=== PATIENT | female | born 1945 | race African-American/Black ===

== ENCOUNTER 2017-02-04 19:21 | Emergency (ER) | payer OTHER, MEDICARE ==
[2017-02-04 19:54] VITALS: TEMP 98; BMI 34.2
[2017-02-04] MEDS ORDERED: ASPIRIN 81 MG CHEWABLE TABLETS PO ONE (21:12)
--- NOTE | 2017-02-04 21:12 | PDOC ---
History of Present Illness - History of Present Illness Initial Comments: 02/04/17 21:26 The patient is a 71 year old female, with a significant past medical history of anemia, PE (s/p knee fracture), gastric ulcer and diverticulosis s/p colonoscopy in 2016 (on protonics), COPD, hypertension, and recurrent sinus infections, who presents to the emergency department with chest pain for 4 days with new onset of shortness of breath and right upper back pain today. She describes the chest pain as an intermittent discomfort to the diffuse anterior aspect of her chest. The patient also states she feels gassy and experiencing some acid reflux, which she reports taking a couple of tums with little to no relief. The patient also reports her right upper back pain radiates anteriorly. She denies recent travel or sick contacts. She denies cough. The patient states she has been compliant with her medications. She denies headache and dizziness. She denies fever, chills, nausea, vomit, diarrhea and constipation. She denies dysuria, frequency, urgency and hematuria. Allergies: NKDA Surgical History: Aortic aneurysm s/p repair was last evaluated 2015 at [facility] Social history: denies toxic habits PCP - Dr. Reeves <Rahda Zhu - Last Filed: 02/04/17 23:30> - General History Source: Patient <Armen Feldman - Last Filed: 02/04/17 23:36> - General Chief Complaint: Chest Pain Stated Complaint: PAIN Time Seen by Provider: 02/04/17 21:11 Past History <Radha Zhu - Last Filed: 02/04/17 23:30> - Past Medical History Anemia: Yes Asthma: No Cancer: No Cardiac Disorders: No CVA: No COPD: Yes (PE) CHF: No Dementia: No Diabetes: No GI Disorders: Yes (GASTRIC ULCER,DIVERTICULOSIS,HEMORRHOIDS) Disorders: No HTN: Yes Hypercholesterolemia: No Liver Disease: No Suicide Attempt (Hx): No Seizures: No Thyroid Disease: Yes (HYPOTHYROIDISM,THYROID NODULES) - Surgical History Abdominal Surgery: Yes (ABDOMINAL ANEURYSM REPAIR ) Appendectomy: No Cardiac Surgery: No Cholecystectomy: No Lung Surgery: No Neurologic Surgery: No Orthopedic Surgery: No - Immunization History Td Vaccination: Yes Immunization Up to Date: Yes - Psycho/Social/Smoking Cessation Hx Anxiety: No Suicidal Ideation: No Smoking Status: No Smoking History: Never smoked Have you smoked in the past 12 months: No Number of Cigarettes Smoked Daily: 0 If you are a former smoker, when did you quit?: at age 19 Information on smoking cessation initiated: No Hx Alcohol Use: No Drug/Substance Use Hx: No Substance Use Type: None Hx Substance Use Treatment: No <FranciaArmen - Last Filed: 02/04/17 23:36> - Past Medical History Allergies/Adverse Reactions: Allergies Allergy/AdvReac Type Severity Reaction Status Date / Time No Known Allergies Allergy Verified 02/04/17 19:49 Home Medications: Ambulatory Orders Aspirin [Baby Aspirin] 81 mg PO DAILY #0 tab.chew 02/12/12 Cholecalciferol (Vitamin D3) [Vitamin D3 -] 1,000 unit PO DAILY #0 tab 02/12/12 Fexofenadine HCl [Kaleigh] 80 mg PO DAILY 03/19/12 Fluticasone Propionate [Flonase Allergy Relief] 9.9 ml NS ASDIR PRN 09/17/16 Methimazole 5 mg PO HS 09/17/16 Multivitamin with Iron [Daily Sharad with Iron] 1 each PO DAILY 09/17/16 Ranitidine HCl [Zantac] 150 mg PO DAILY 09/17/16 Valsartan [Diovan] 160 mg PO DAILY 09/17/16 Review of Systems - Review of Systems Able to Perform ROS?: Yes Comments:: 02/04/17 21:26 CONSTITUTIONAL: Absent: fever, chills, diaphoresis, generalized weakness, malaise, loss of appetite HEENT: Absent: rhinorrhea, nasal congestion, throat pain, throat swelling, difficulty swallowing, mouth swelling, ear pain, eye pain, visual Changes CARDIOVASCULAR: (+) chest pain Absent: syncope, palpitations, irregular heart rate, lightheadedness, peripheral edema RESPIRATORY: (+) shortness of breath Absent: cough, dyspnea with exertion, orthopnea, wheezing, stridor, hemoptysis GASTROINTESTINAL: (+) Acid reflux and gas Absent: abdominal pain, abdominal distension, nausea, vomiting, diarrhea, constipation, melena, hematochezia GENITOURINARY: Absent: dysuria, frequency, urgency, hesitancy, hematuria, flank pain, genital pain MUSCULOSKELETAL: Absent: myalgia, arthralgia, joint swelling SKIN: Absent: rash, itching, pallor HEMATOLOGIC/IMMUNOLOGIC: Absent: easy bleeding, easy bruising, lymphadenopathy, frequent infections ENDOCRINE: Absent: unexplained weight gain, unexplained weight loss, heat intolerance, cold intolerance NEUROLOGIC: Absent: headache, focal weakness or paresthesias, dizziness, unsteady gait, seizure, mental status changes, bladder or bowel incontinence PSYCHIATRIC: Absent: anxiety, depression, suicidal or homicidal ideation, hallucinations. <Radha Zhu - Last Filed: 02/04/17 23:30> *Physical Exam - Vital Signs Last Vital Signs Temp Pulse Resp BP Pulse Ox 98.0 F 79 20 153/93 99 02/04/17 19:49 02/04/17 19:49 02/04/17 19:49 02/04/17 19:54 02/04/17 19:49 - Physical Exam Comments: 02/04/17 21:27 GENERAL: Well developed, well nourished. Awake and alert. No acute distress. HEENT: Normocephalic, atraumatic. PERRLA, EOMI. No conjunctival pallor. Sclera are non- icteric. Moist mucous membranes. Oropharynx is clear. NECK: Supple. Full ROM. No JVD. Carotid pulses 2+ and symmetric, without bruits. No thyromegaly. No lymphadenopathy. CARDIOVASCULAR: Regular rate and rhythm. No murmurs, rubs, or gallops. Distal pulses are 2+ and symmetric. PULMONARY: No evidence of respiratory distress. Lungs clear to auscultation bilaterally. No wheezing, rales or rhonchi. ABDOMINAL: Soft. Non-tender. Non-distended. No rebound or guarding. No organomegaly. Normoactive bowel sounds. MUSCULOSKELETAL (+) ttp right upper thoracic region. Normal range of motion at all joints. No bony deformities. No CVA tenderness. EXTREMITIES: No cyanosis. No clubbing. No edema. No calf tenderness. SKIN: Warm and dry. Normal capillary refill. No rashes. No jaundice. NEUROLOGICAL: Alert, awake, appropriate. Cranial nerves 2-12 intact. Normoreflexic in the upper and lower extremities. Normal speech. Toes are down-going bilaterally. Gait is normal without ataxia. PSYCHIATRIC: Cooperative. Good eye contact. Appropriate mood and affect. <Radha Zhu - Last Filed: 02/04/17 23:30> - Vital Signs Last Vital Signs Temp Pulse Resp BP Pulse Ox 98.0 F 79 20 153/93 99 02/04/17 19:49 02/04/17 19:49 02/04/17 19:49 02/04/17 19:54 02/04/17 19:49 <Armen Feldman - Last Filed: 02/04/17 23:36> Heart Score/ECG Review - ECG Intrepretation Comment:: 02/04/17 21:28 ECG was read by Dr. Feldman at 20:01 Impression: Sinus bradycardia. Minimal voltage criteria for LVH. Nonspecific ST and T wave abnormality. Vent rate: 54 Bpm RI Interval: 176 bpm QTc: 422 ms <Radha Zhu - Last Filed: 02/04/17 23:30> ED Treatment Course - LABORATORY CBC & Chemistry Diagram: 02/04/17 21:40 02/04/17 21:40 - RADIOLOGY Radiograph Interpretation: 02/04/17 23:30 EXAM: PA and lateral chest was read by Adam Ellison MD 02/04/2017 23:26 EST REASON FOR EXAM: Chest pain rule out infiltrate FINDINGS: Osseous structures heart lungs and mediastinum are normal. No pulmonary infiltrates. <Radha Zhu - Last Filed: 02/04/17 23:30> - LABORATORY CBC & Chemistry Diagram: 02/04/17 21:40 02/04/17 21:40 <Armen Feldman - Last Filed: 02/04/17 23:36> Medical Decision Making - Medical Decision Making 02/04/17 23:35 Dr. Feldman: The scribe's documentation has been prepared under my direction and personally reviewed by me in its entirery. I confirm that the note above accurately reflects all work, treatment, procedures, and medical decision making performed by me. All studies returned to be normal. Pt to follow up with her pcp as needed. Pt is hemodynamically stable. <Armen Feldman - Last Filed: 02/04/17 23:36> *DC/Admit/Observation/Transfer - Attestations Scribe Attestion: 02/04/17 21:28 Documentation prepared by Radha Zhu, acting as director medical writing for Armen Feldman MD <Radha Zhu - Last Filed: 02/04/17 23:30> - Discharge Dispostion Admit: No <Armen Feldman - Last Filed: 02/04/17 23:36> Diagnosis at time of Disposition: Chest wall pain Chest pain Qualifiers: Chest pain type: unspecified Qualified Code(s): R07.9 - Chest pain, unspecified - Discharge Dispostion Disposition: HOME Condition at time of disposition: Stable - Referrals Referrals: Kayden Reeves MD [Primary Care Provider] - - Patient Instructions Printed Discharge Instructions: DI for Chest Pain
[2017-02-04] MEDS ORDERED: ASPIRIN 81 MG CHEWABLE TABLETS ONE (21:44)
[2017-02-04 21:49] LABS: BASOPHIL 0.7 % (0-2.0); EOSINOPHIL 3.1 % (0-4.5); MCH 26.5 pg (25.7-33.7); MCHC 34.1 g/dl (32.0-36.0); MEAN CELL VOLUME 77.7 fl (80-96); MEAN PLT VOLUME 9.3 fl (7.5-11.1); NEUTROPHILS 55.5 % (42.8-82.8); PLATELET COUNT 278 K/MM3 (134-434); RDW 16.2 % (11.6-15.6); WHITE BLOOD COUNT 6.1 K/mm3 (4.0-10.0)
[2017-02-04] MEDS ORDERED: ASPIRIN 81 MG CHEWABLE TABLETS PO STA (22:01)
[2017-02-04 22:13] LABS: INR 1.15 (0.82-1.09); PROTHROMBIN TIME (PATIENT) 12.7 SEC (9.98-11.88)
[2017-02-04 22:24] LABS: ALBUMIN 3.1 g/dl (3.4-5.0); ANION GAP 8 (8-16); CALCIUM 9.3 mg/dL (8.5-10.1); CO2 25 mmol/L (21-32); GLUCOSE,RANDOM 102 mg/dL (74-106)
[2017-02-04 22:30] LABS: ALK PHOS 71 U/L (45-117); BILIRUBIN,TOTAL 0.2 mg/dL (0.2-1.0); CREATININE 0.9 mg/dL (0.55-1.02); SGOT/AST 21 U/L (15-37); SGPT/ALT 18 U/L (12-78); TROPONIN I < 0.02 ng/ml (0.00-0.05)
[2017-02-04] MEDS ORDERED: ACETAMINOPHEN 500 MG TABLET (FP) PO ONE (23:34)
[2017-02-04] MEDS ORDERED: ACETAMINOPHEN 325 MG TABLET (FP) ONE (23:38)
[2017-02-04 23:46] VITALS: BP 146/89; PULSE 82
--- NOTE | 2017-02-05 17:34 | EKG ---
Test Reason : Blood Pressure : / mmHG Vent. Rate : 054 BPM Atrial Rate : 054 BPM P-R Int : 176 ms QRS Dur : 090 ms QT Int : 446 ms P-R-T Axes : 065 008 031 degrees QTc Int : 422 ms SINUS BRADYCARDIA MINIMAL VOLTAGE CRITERIA FOR LVH, MAY BE NORMAL VARIANT NONSPECIFIC ST AND T WAVE ABNORMALITY ABNORMAL ECG WHEN COMPARED WITH ECG OF 14-JAN-2016 16:02, NO SIGNIFICANT CHANGE WAS FOUND Confirmed by CHARLES TATUM, JASON ([id number]) on 02/05/2017 5:34:05 PM Referred By: Confirmed By:JASON SOTO MD
== END 2017-02-04 23:46 | disposition home or self-care (01) ==
LOC: JER 19:21
DX: R07.9 Chest pain, unspecified (principal); I10 Essential (primary) hypertension; E03.9 Hypothyroidism, unspecified; K57.90 Diverticulosis of intestine, part unspecified, without perforation or abscess without bleeding; Z86.711 Personal history of pulmonary embolism
CPT/HCPCS: 36415; 71020-TC; 80053; 82550; 83735; 84484; 85025; 85610; 93005; 93010; 99284-25

== ENCOUNTER 2021-03-15 04:39 | Day surgery (SDC) | payer OTHER ==
[2021-03-10 14:37] VITALS: BMI 33.6
[2021-03-15 10:45] VITALS: TEMP 97.3
[2021-03-15 11:59] VITALS: BP 147/67; PULSE 65
== END 2021-03-15 11:44 | disposition home or self-care (01) ==
LOC: JASU-ENDO 04:39
PROVIDERS: ATTEND Internal Medicine Gastroenterology
PROC: 0DJD8ZZ Inspection of Lower Intestinal Tract, Via Natural or Artificial Opening Endoscopic (ICD-10-PCS; principal; 2021-03-15 10:00)
DX: Z12.11 Encounter for screening for malignant neoplasm of colon (principal); K57.30 Diverticulosis of large intestine without perforation or abscess without bleeding; Z80.0 Family history of malignant neoplasm of digestive organs; R19.4 Change in bowel habit; R10.84 Generalized abdominal pain

== ENCOUNTER → 2021-07-12 | Day surgery (SDC) | payer OTHER | END | disposition home or self-care (01) | LOC: JRADIR 09:29 | PROVIDERS: ATTEND Internal Medicine Endocrinology, Diabetes & Metabolism | PROC: 0G9K3ZX Drainage of Thyroid Gland, Percutaneous Approach, Diagnostic (ICD-10-PCS; principal; 2021-07-12) | DX: E04.1 Nontoxic single thyroid nodule (principal) | CPT/HCPCS: 10005; 76942 ==

== ENCOUNTER → 2021-08-02 | Day surgery (SDC) | payer OTHER | END | disposition home or self-care (01) | LOC: JRADIR 12:14 | PROVIDERS: ATTEND Internal Medicine Endocrinology, Diabetes & Metabolism | PROC: 0G9G3ZX Drainage of Left Thyroid Gland Lobe, Percutaneous Approach, Diagnostic (ICD-10-PCS; principal; 2021-08-02) | DX: E04.1 Nontoxic single thyroid nodule (principal) | CPT/HCPCS: 10005; 76942; 88173; 88305-TC ==

== ENCOUNTER → 2021-08-15 | Day surgery (SDC) | payer OTHER | END | disposition home or self-care (01) | LOC: JRADIR 04:15 | PROVIDERS: ATTEND Internal Medicine Endocrinology, Diabetes & Metabolism | PROC: 0GJK3ZZ Inspection of Thyroid Gland, Percutaneous Approach (ICD-10-PCS; principal; 2021-08-15) | PROC: BG44ZZZ Ultrasonography of Thyroid Gland (ICD-10-PCS; 2021-08-15) | DX: E04.1 Nontoxic single thyroid nodule (principal); Z53.8 Procedure and treatment not carried out for other reasons | CPT/HCPCS: 10005; 76942 ==